=== PATIENT | male | born 1965 | race Caucasian/White ===

== ENCOUNTER 2017-01-26 11:05 | Inpatient (IN) | payer OTHER ==
[~2017-01-26] VITALS: Ht 182.9 cm; Wt 129.5 kg
[~2017-01-26 11:05] MED LIST: ALDACTONE25 MG PO; ASP325 PO; ASPIR LOW81 MG; ASPIR LOW81 MG PO; KEFLEX500 MG PO; LAC PO; LASIX40 MG; LASIX40 MG PO; LISINOPRIL40 MG; LISINOPRIL40 MG PO; LOTC TOP; METOPROLOL SUCC50 M2 PO; TOP50 PO; ZES20 PO
[2017-01-26 12:28] LABS: BASOPHIL % 0.2 % (0-2)
[2017-01-26 12:29] LABS: CALCIUM 8.5 mg/dL (8.5-10.1); CARBON DIOXIDE 28.5 mmol/L (21-32); CHLORIDE SERUM 107 mmol/L (98-107); CREATININE SERUM 0.9 mg/dL (0.7-1.3); GFR1 > 60 mL/min; GLUCOSE SERUM 86 mg/dL (74-106); POTASSIUM SERUM 3.6 mmol/L (3.5-5.1); SODIUM SERUM 143 mmol/L (136-145)
[2017-01-26 12:30] LABS: RED CELL DISTRIBUTION WIDTH 16.2 % (11.5-14.5)
[2017-01-26 12:36] LABS: ALKALINE PHOSPHATASE 64 U/L (46-116); ALT/SGPT 23 U/L (16-63); AST/SGOT 21 U/L (15-37); BILIRUBIN TOTAL 0.86 mg/dL (0.20-1.00); TOTAL PROTEIN, SERUM 7.3 g/dL (6.4-8.2)
[2017-01-26 12:37] LABS: ALBUMIN 3.3 g/dL (3.4-5.0)
[2017-01-26 12:41] LABS: PLATELET COUNT 115 x10^3mcL (130-400)
[2017-01-26 14:20] LABS: microscopic required? YES; urine erythrocyte NEGATIVE (NEGATIVE)
[2017-01-26 15:04] LABS: T3 TOTAL 0.86 ng/mL
[2017-01-26 15:10] VITALS: BP 129/85
[2017-01-26 15:26] LABS: MAGNESIUM 1.8 mg/dL (1.8-2.4); PHOSPHOROUS 2.7 mg/dL (2.5-4.9)
[2017-01-26 15:30] LABS: CHOLESTEROL/HDL RATIO 3.8
[2017-01-26 15:35] LABS: FREE T4 1.31 ng/dL (0.76-1.46); FREE THYROXINE INDEX 3.5 ug/dL (1.4-4.5); T4(THYROXINE) 9.8 ug/dL (4.7-13.3)
[2017-01-26 16:36] VITALS: BP 129/85
[2017-01-26 22:05] VITALS: BP 123/64
[2017-01-27 06:10] VITALS: BP 117/63
[2017-01-27 07:10] LABS: CALCIUM 8.3 mg/dL (8.5-10.1); CARBON DIOXIDE 31.7 mmol/L (21-32); CHLORIDE SERUM 109 mmol/L (98-107); CREATININE SERUM 0.8 mg/dL (0.7-1.3); GFR1 > 60 mL/min; GLUCOSE SERUM 104 mg/dL (74-106); POTASSIUM SERUM 3.9 mmol/L (3.5-5.1); SODIUM SERUM 144 mmol/L (136-145)
[2017-01-27 07:48] LABS: BASOPHIL % 0.2 % (0-2); PLATELET COUNT 108 x10^3mcL (130-400)
[2017-01-27 09:25] VITALS: BP 120/61; BP 138/96
[2017-01-27 13:02] VITALS: BP 112/79
[2017-01-27 17:44] VITALS: BP 132/86
[2017-01-27 21:16] VITALS: BP 128/89
[2017-01-28 00:26] LABS: AMPHETAMINE QUAL UR NONE DETECTED (NEG <=1000)
[2017-01-28 05:57] VITALS: BP 117/69
[2017-01-28 06:34] LABS: CALCIUM 8.8 mg/dL (8.5-10.1); CARBON DIOXIDE 29.4 mmol/L (21-32); CHLORIDE SERUM 106 mmol/L (98-107); CREATININE SERUM 0.9 mg/dL (0.7-1.3); GFR1 > 60 mL/min; GLUCOSE SERUM 101 mg/dL (74-106); MAGNESIUM 1.9 mg/dL (1.8-2.4); PHOSPHOROUS 4.3 mg/dL (2.5-4.9); POTASSIUM SERUM 3.9 mmol/L (3.5-5.1); SODIUM SERUM 142 mmol/L (136-145)
[2017-01-28 06:54] LABS: BASOPHIL % 0.1 % (0-2)
[2017-01-28 07:12] LABS: PLATELET COUNT 119 x10^3mcL (130-400); RED CELL DISTRIBUTION WIDTH 15.7 % (11.5-14.5)
[2017-01-28 09:22] VITALS: BP 124/82
[2017-01-28 14:21] VITALS: BP 108/74
[2017-01-28 17:32] VITALS: BP 112/70
[2017-01-28 21:36] VITALS: BP 105/56
[2017-01-29 05:48] VITALS: BP 124/78
[2017-01-29 09:45] VITALS: BP 105/73
[2017-01-29 13:12] VITALS: BP 117/87
[2017-01-29] MEDS ORDERED: LEVAQUIN750 MG PO (14:55)
[2017-01-29] MEDS ORDERED: CLEOCIN HCL300 MG PO (14:58)
[2017-01-29] MEDS ORDERED: SPIRONOLACTONE25 MG PO (14:58)
[2017-01-29] MEDS ORDERED: BD LACTINEX1.4 MG PO (14:59)
[2017-01-29 15:08] VITALS: BP 117/87
== END 2017-01-29 15:40 | disposition home or self-care (01) | DRG 194 ==
LOC: ED 11:05 → DU 13:18
PROVIDERS: Emergency Medicine; ADMIT Family Medicine
DX: I11.0 Hypertensive heart disease with heart failure (principal); N17.0 Acute kidney failure with tubular necrosis; J18.9 Pneumonia, unspecified organism; D69.6 Thrombocytopenia, unspecified; I27.2 Other secondary pulmonary hypertension; E44.0 Moderate protein-calorie malnutrition; L03.116 Cellulitis of left lower limb; E66.01 Morbid (severe) obesity due to excess calories; I50.43 Acute on chronic combined systolic (congestive) and diastolic (congestive) heart failure; F17.210 Nicotine dependence, cigarettes, uncomplicated; Z96.662 Presence of left artificial ankle joint; Z53.29 Procedure and treatment not carried out because of patient's decision for other reasons; J20.9 Acute bronchitis, unspecified; F15.10 Other stimulant abuse, uncomplicated; G56.22 Lesion of ulnar nerve, left upper limb; I35.1 Nonrheumatic aortic (valve) insufficiency; I87.2 Venous insufficiency (chronic) (peripheral); B35.1 Tinea unguium; Z79.82 Long term (current) use of aspirin; Z68.38 Body mass index [BMI] 38.0-38.9, adult; Z79.899 Other long term (current) drug therapy
CPT/HCPCS: 83880; 84439; 85378; 94150; J1940; J1956; J3490; J7030; J7620; Q0092

== ENCOUNTER 2019-06-10 15:04 | Inpatient (IN) | payer OTHER ==
[~2019-06-10] VITALS: Ht 180.3 cm; Wt 134.9 kg
[~2019-06-10 15:04] MED LIST changes: -ALDACTONE25 MG PO; +BD LACTINEX1.4 MG PO; +CLEOCIN HCL300 MG PO; +LEVAQUIN750 MG PO; +SPIRONOLACTONE25 MG PO
[2019-06-10 15:43] LABS: BASOPHIL % 0.4 % (0-2); PLATELET COUNT 148 x10^3mcL (130-400); RED CELL DISTRIBUTION WIDTH 14.5 % (11.5-14.5)
[2019-06-10 16:08] LABS: CALCIUM 8.6 mg/dL (8.5-10.1); CARBON DIOXIDE 25.6 mmol/L (21-32); CHLORIDE SERUM 102 mmol/L (98-107); CREATININE SERUM 0.9 mg/dL (0.7-1.3); GFR1 > 60 mL/min; GLUCOSE SERUM 89 mg/dL (74-106); POTASSIUM SERUM 4.3 mmol/L (3.5-5.1); SODIUM SERUM 135 mmol/L (136-145)
[2019-06-10 16:12] LABS: ALBUMIN 3.6 g/dL (3.4-5.0); ALKALINE PHOSPHATASE 88 U/L (46-116); ALT/SGPT 51 U/L (16-63); AST/SGOT 23 U/L (15-37); BILIRUBIN TOTAL 0.6 mg/dL (0.20-1.00); TOTAL PROTEIN, SERUM 7.6 g/dL (6.4-8.2)
[2019-06-10 16:46] LABS: microscopic required? NO
[2019-06-10 16:56] LABS: T4(THYROXINE) 11.6 ug/dL (4.7-13.3)
[2019-06-10 17:02] LABS: UA SPECIFIC GRAVITY 1.025 (1.005-1.035); urine erythrocyte NEGATIVE (NEGATIVE)
[2019-06-10 17:18] LABS: AMPHETAMINE QUAL UR NONE DETECTED (See below)
[2019-06-10] MEDS ORDERED: LISINOPRIL20 MG PO (19:56)
[2019-06-10] MEDS ORDERED: METOPROLOL SUCC50 M2 PO (19:56)
[2019-06-10 20:54] LABS: MAGNESIUM 1.7 mg/dL (1.8-2.4); PHOSPHOROUS 3.5 mg/dL (2.5-4.9)
[2019-06-10 21:55] VITALS: BP 95/59
[2019-06-10 21:58] VITALS: Ht 180.3 cm; Wt 134.9 kg
[2019-06-11] VITALS (7 sets, daily range): BP systolic 101–128; BP diastolic 54–89
[2019-06-11 06:47] LABS: BASOPHIL % 0.3 % (0-2)
[2019-06-11 06:59] LABS: CALCIUM 8.3 mg/dL (8.5-10.1); CARBON DIOXIDE 26.9 mmol/L (21-32); CHLORIDE SERUM 107 mmol/L (98-107); CREATININE SERUM 0.9 mg/dL (0.7-1.3); GFR1 > 60 mL/min; GLUCOSE SERUM 85 mg/dL (74-106); MAGNESIUM 1.7 mg/dL (1.8-2.4); POTASSIUM SERUM 4.3 mmol/L (3.5-5.1); SODIUM SERUM 143 mmol/L (136-145)
[2019-06-11 07:25] LABS: PLATELET COUNT 117 x10^3mcL (130-400); RED CELL DISTRIBUTION WIDTH 14.9 % (11.5-14.5)
[2019-06-12 05:42] VITALS: BP 149/88
[2019-06-12 06:59] LABS: BASOPHIL % 0.3 % (0-2); RED CELL DISTRIBUTION WIDTH 14.5 % (11.5-14.5)
[2019-06-12 07:06] LABS: CALCIUM 8.5 mg/dL (8.5-10.1); CARBON DIOXIDE 27.8 mmol/L (21-32); CHLORIDE SERUM 104 mmol/L (98-107); CREATININE SERUM 0.9 mg/dL (0.7-1.3); GFR1 > 60 mL/min; GLUCOSE SERUM 96 mg/dL (74-106); MAGNESIUM 1.8 mg/dL (1.8-2.4); PHOSPHOROUS 3.5 mg/dL (2.5-4.9); POTASSIUM SERUM 4.3 mmol/L (3.5-5.1); SODIUM SERUM 140 mmol/L (136-145)
[2019-06-12 07:25] LABS: PLATELET COUNT 124 x10^3mcL (130-400)
[2019-06-12 09:16] VITALS: BP 131/80
[2019-06-12 12:56] VITALS: BP 102/49
[2019-06-12 13:42] VITALS: BP 102/49
[2019-06-12] MEDS ORDERED: TOP50 PO (14:48)
[2019-06-12] MEDS ORDERED: ALDACTONE25 MG PO (15:15)
== END 2019-06-12 15:42 | disposition home or self-care (01) | DRG 189 ==
LOC: ED 15:04 → DU 19:10 → EDBEDREQ 19:24 → DU 21:04 → MU 06-12 15:09
PROVIDERS: Emergency Medicine; ADMIT Family Medicine
DX: J96.01 Acute respiratory failure with hypoxia (principal); I47.1 Supraventricular tachycardia; Z68.41 Body mass index [BMI] 40.0-44.9, adult; E87.1 Hypo-osmolality and hyponatremia; I50.32 Chronic diastolic (congestive) heart failure; I11.0 Hypertensive heart disease with heart failure; F17.210 Nicotine dependence, cigarettes, uncomplicated; K44.9 Diaphragmatic hernia without obstruction or gangrene; E66.01 Morbid (severe) obesity due to excess calories; Z71.3 Dietary counseling and surveillance; E83.42 Hypomagnesemia; D75.1 Secondary polycythemia; I35.0 Nonrheumatic aortic (valve) stenosis
CPT/HCPCS: 36600; 83880; 85378; 99406; G0378; G0480; J1956; Q9967